=== PATIENT | male | born 1970 | race Caucasian/White ===

== ENCOUNTER 2016-08-24 18:58 | Emergency (ER) | payer OTHER ==
[2016-08-24 18:58] VITALS: BMI 20.3
[2016-08-24 19:02] VITALS: BP 159/74; PULSE 90; TEMP 98
== END 2016-08-24 19:35 | disposition left against medical advice (07) ==
LOC: ED 18:58
DX: Z53.21 Procedure and treatment not carried out due to patient leaving prior to being seen by health care provider (principal)